=== PATIENT | female | born 1970 | race Two or more races ===

== ENCOUNTER 2024-06-13 11:30 | Inpatient (IN) | payer OTHER ==
[~2024-06-13] VITALS: Ht 152.4 cm; Wt 69.4 kg
[~2024-06-13 11:30] MED LIST: MOTRIN800 MG PO
[2024-06-13 13:21] VITALS: BP 116/76
[2024-06-13 15:29] LABS: RH POSITIVE
[2024-06-19] MEDS ORDERED: LIDOCAINE HCL 1% 20 ML VIAL IJ ONE (13:44)
[2024-06-19] MEDS ORDERED: SILVER SULFADIAZINE 50 GM JAR TOP ONE (14:15)
[2024-06-19] MEDS ORDERED: HEMOSTATIC MATRIX 1 KIT KIT TOP ONE (14:24)
[2024-06-19] MEDS ORDERED: POVIDONE-IODINE 118 ML BOTT TOP ONE (14:24)
[2024-06-19] MEDS ORDERED: SURGIFLO APPLICATOR 1 EACH APPL TOP ONE (14:25)
[2024-06-19] MEDS ORDERED: METRONIDAZOLE/SODIUM CHLORIDE 500 MG/100 ML PIGGYBACK IV ONE (14:33)
[2024-06-19] MEDS ORDERED: CEFAZOLIN SODIUM 1,000 MG VIAL ONE ×2 (14:34→17:30)
[2024-06-19] MEDS ORDERED: KETOROLAC TROMETHAMINE 30 MG VIAL IV NR (16:30)
[2024-06-19] MEDS ORDERED: MORPHINE SULFATE 4 MG/ML CARTRIDGE IV PRN (16:30)
[2024-06-19] MEDS ORDERED: RINGERS SOLUTION,LACTATED 1,000 ML IV SCH (16:30)
[2024-06-19] MEDS ORDERED: SIMETHICONE 125 MG CAPSULE PO SCH (17:00)
[2024-06-19] MEDS ORDERED: CEFAZOLIN SODIUM 1,000 MG VIAL IV SCH (17:00)
[2024-06-19] MEDS ORDERED: METOCLOPRAMIDE HCL 5 MG/ML VIAL IV SCH (17:00)
[2024-06-19] MEDS ORDERED: MORPHINE SULFATE 4 MG/ML VIAL IV ONE ×2 (17:05→17:35)
[2024-06-19] MEDS ORDERED: METOCLOPRAMIDE HCL 5 MG/ML VIAL ONE (17:29)
[2024-06-19] MEDS ORDERED: ACETAMINOPHEN 500 MG GEL..CAP PO SCH (18:00)
[2024-06-19 18:24] LABS: HEMATOCRIT 40.2 % (36.0-45.00); HEMOGLOBIN 13.5 g/dL (12.0-15.00); MEAN CORPUSCULAR HEMOGLOBIN 28.3 pg (27.00-32.0); MEAN CORPUSCULAR HGB CONC 33.7 g/dl (32.0-36.0); PLATELET COUNT 195 K/uL (150-450); RED BLOOD COUNT 4.78 M/uL (4.00-6.00); RED CELL DISTRIBUTION WIDTH 14.3 % (11.5-14.5)
[2024-06-19] MEDS ORDERED: KETOROLAC TROMETHAMINE 30 MG VIAL ONE (18:32)
[2024-06-19] MEDS ORDERED: KETOROLAC TROMETHAMINE 30 MG VIAL IV ONE (18:35)
[2024-06-19 18:44] LABS: ALBUMIN 3.4 gm/dL (3.4-5.0); CALCIUM 8.6 mg/dL (8.5-10.1); CREATININE SERUM 0.72 mg/dL (0.55-1.02); GFR 83.79; POTASSIUM 3.73 mEq/L (3.5-5.1)
[2024-06-19] MEDS ORDERED: SUGAMMADEX SODIUM 200 MG/2 ML VIAL IV ONE (20:00)
[2024-06-19] MEDS ORDERED: FAMOTIDINE/PF 20 MG/2 ML VIAL IV PUSH SCH (21:00)
[2024-06-19] MEDS ORDERED: DOCUSATE SODIUM 100MG CAP PO SCH (21:00)
[2024-06-19] MEDS ORDERED: GABAPENTIN 300 MG CAPSULE PO SCH (21:00)
[2024-06-19] MEDS ORDERED: CELECOXIB 200 MG CAPSULE PO SCH (21:00)
[2024-06-20] VITALS: BP 118/72; O2SAT 96
[2024-06-20 06:47] LABS: HEMATOCRIT 36.2 % (36.0-45.00); HEMOGLOBIN 12.1 g/dL (12.0-15.00); MEAN CELL VOLUME 85.4 fL (80.00-100.00); MEAN CORPUSCULAR HEMOGLOBIN 28.5 pg (27.00-32.0); MEAN CORPUSCULAR HGB CONC 33.3 g/dl (32.0-36.0); PLATELET COUNT 197 K/uL (150-450); RED BLOOD COUNT 4.24 M/uL (4.00-6.00)
[2024-06-20 07:21] LABS: ALBUMIN 2.9 gm/dL (3.4-5.0); CALCIUM 8.4 mg/dL (8.5-10.1); CREATININE SERUM 0.66 mg/dL (0.55-1.02); GFR 92.64; PHOSPHOROUS 3.5 mg/dL (2.5-4.9); POTASSIUM 4.79 mEq/L (3.5-5.1)
[2024-06-20] MEDS ORDERED: ENOXAPARIN SODIUM 40 MG/0.4 ML SYRINGE SUBCUTANEO SCH (09:00)
== END 2024-06-20 09:56 | disposition home or self-care (01) | DRG 741 ==
LOC: O/R 06-19 06:40 → SURG 06-19 06:40 → OB/GYN 06-19 11:30 → SURG 06-19 17:20
PROVIDERS: Obstetrics & Gynecology; ADMIT Obstetrics & Gynecology Gynecologic Oncology; ATTEND Obstetrics & Gynecology Gynecologic Oncology
PROC: 0UT74ZZ Resection of Bilateral Fallopian Tubes, Percutaneous Endoscopic Approach (ICD-10-PCS; 2024-06-19)
PROC: 0UT24ZZ Resection of Bilateral Ovaries, Percutaneous Endoscopic Approach (ICD-10-PCS; 2024-06-19)
PROC: 07BC4ZZ Excision of Pelvis Lymphatic, Percutaneous Endoscopic Approach (ICD-10-PCS; 2024-06-19)
PROC: 0TNB4ZZ Release Bladder, Percutaneous Endoscopic Approach (ICD-10-PCS; 2024-06-19)
PROC: 8E0W4CZ Robotic Assisted Procedure of Trunk Region, Percutaneous Endoscopic Approach (ICD-10-PCS; 2024-06-19)
PROC: 0UT94ZZ Resection of Uterus, Percutaneous Endoscopic Approach (ICD-10-PCS; principal; 2024-06-19 16:15)
DX: C54.1 Malignant neoplasm of endometrium (principal)
CPT/HCPCS: 58548; S2900